=== PATIENT | female | born 1960 | race Caucasian/White ===

== ENCOUNTER → 2017-01-06 | Outpatient (CLI) | payer MEDICAID ==
[~2017-01-06] MED LIST: ABILIFY10 MG PO; ASA325 MG PO; BYSTOLIC5 MG PO; DAILY MULTIPLE1 EAC1 PO; IMODIUM DPS2 MG PO; MILK OF MAGNESI10 ML PO; MIRALAX PACKET17 GM PO; NEURONTIN DPS300 MG PO; PROTONIX40 MG PO; PROZAC DPS20 MG PO; SENOKOT S1 TAB PO; SURFAK DPS240 MG PO; TOVIAZ8 MG PO; TUMS DPS500 MG PO; TYLENOL DPS325 MG PO
== END | disposition home or self-care (01) ==
LOC: CARD 12:55
DX: I10 Essential (primary) hypertension (principal)